=== PATIENT | female | born 1965 | race Caucasian/White ===

== ENCOUNTER 2020-03-29 14:28 | Emergency (ER) | payer MEDICARE, OTHER ==
[~2020-03-29] VITALS: Ht 160 cm; Wt 66.7 kg
[2020-03-29 16:54] VITALS: BP 128/77
[2020-03-29] MEDS ORDERED: HYDROcodone-ACET 10/325MG TAB PO ONE (17:45)
== END 2020-03-29 17:54 | disposition home or self-care (01) ==
LOC: ER 14:28
DX: C20 Malignant neoplasm of rectum (principal); Z76.0 Encounter for issue of repeat prescription